=== PATIENT | female | born 1950 | race Caucasian/White ===

== ENCOUNTER 2025-07-05 14:36 | Outpatient (CLI) | payer BC ==
[2025-07-05] MEDS ORDERED: GADOTERATE MEGLUMINE 7.5 MMOL/15 ML VIAL IV ONE (17:59)
--- NOTE | 2025-07-05 18:42 | RADIOLOGY REPORT ---
PROCEDURE: MR MRI HEAD Indication: BENIGN NEOPLASM OF CRANIAL NERVES, ACOUSTIC NEUROMA COMPARISON: None TECHNIQUE: Multiplanar multisequence images of the brain are obtained with and without contrast, IAC protocol. FINDINGS: There is no abnormal diffusion restriction. There is no intracranial hemorrhage. No extra-axial flui d collection. No mass effect. There are lcda-[id number]-[id number] periventricular and subcortical white matter T2 and FLAIR hyperintense changes.m there is mild global cerebral volume loss. CP angle mass which e xtends into the right IAC measuring 13 12 mm. This demonstrates relatively homogeneous enhancement.. The ventricles are midline and normal in size. The cisterns are patent. Normal intracranial flow void s are preserved. No abnormal susceptibility signal. Hypoenhancing pituitary lesion measuring 7 x 9 mm . The sinuses and mastoids are well pneumatized. The visualized orbits are unremarkable. IMPRESSION: Enhancing right CP angle mass extending into the right IAC measuring 13 x 12 mm consistent with histo ry of schwannoma. Other considerations include meningioma. Correlate with prior imaging. No acute cerebrovascular ischemia. Ecpd-dp-[id number] chronic microvascular ischemic changes. Mild global cerebral volume loss. Hypoenhancing pituitary lesion measuring 7 x 9 mm, possibly micro adenoma. Recommend MRI brain with and without contrast, pituitary mass protocol 2 suzanna macias.
--- NOTE | 2025-07-05 20:25 | RADIOLOGY REPORT ---
EXAM: MR MRI C SPINE HISTORY: CERVICAL DISC DEGENERATION COMPARISON: None TECHNIQUE: MRI was performed utilizing multiple appropriate imaging planes and pulse sequences. FINDINGS: There is no acute fracture. There is multilevel disc desiccation and loss of intervertebral disc heig ht, most pronounced at C5-6. There is mild retrolisthesis of C5 on C6. There is grade 1 anterolisth esis of C7 on T1, T1 on T2, and T2 on T3. The spinal cord is unremarkable. The paraspinal soft tissu es are unremarkable. INTERVERTEBRAL DISCS: Evaluation is mildly degraded by motion artifact. C2-C3: No disc herniation, central canal stenosis, or neuroforaminal stenosis. C3-C4: No disc herniation, central canal stenosis, or neuroforaminal stenosis. C4-C5: A mild disc osteophyte effaces the thecal sac. There is mild facet arthropathy and uncovertebr al hypertrophy. There is mild left neural foraminal stenosis. C5-C6: A disc osteophyte complex effaces the thecal sac and contributes to at least mild spinal canal stenosis. There is facet arthropathy. There is at least mild bilateral neural foraminal stenosis. C6-C7: A disc osteophyte effaces the thecal sac and contributes to at least mild spinal stenosis. The re is facet arthropathy. There is at least mild left neural foraminal stenosis. C7-T1: No disc herniation, central canal stenosis, or neuroforaminal stenosis. IMPRESSION: 1. Multilevel degenerative changes of the cervical spine as detailed, most pronounced at C5-6. Please see above discussion.
== END 2025-07-05 23:59 | disposition home or self-care (01) ==
LOC: MRI 14:36
PROVIDERS: ATTEND General Practice
DX: M47.812 Spondylosis without myelopathy or radiculopathy, cervical region (principal); M50.30 Other cervical disc degeneration, unspecified cervical region; D33.3 Benign neoplasm of cranial nerves; M48.02 Spinal stenosis, cervical region; M25.78 Osteophyte, vertebrae
CPT/HCPCS: 70553; A9575

== ENCOUNTER 2025-07-27 09:55 | Outpatient (CLI) | payer BC ==
--- NOTE | 2025-07-27 14:54 | RADIOLOGY REPORT ---
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 15 mL Clariscan gadolinium contrast were used. FINDINGS: Enhancing mass of the right IAC and cerebellopontine angle is re- identified measuring up to 17.5 mm transverse x 9.1 mm AP (images 35-40, series 10). There is global brain atrophy. There is mild high T2-FLAIR signal abnormality in the periventricular white matter. No midline shift or hydrocep halus. No abnormal postcontrast enhancement is identified in the supra or infratentorial [place] or white matter. The diffusion-weighted images do not demonstrate restricted diffusion. Flow voids are present in the major intracranial vessels. T2 gradient echo images are severely limited by artifact. There is mild pituitary prominence and hypoenhancing nodule of the pituitary measuring 9.3 mm axially (image 35, series 10), without available coronal or sagittal post IV contrast images, and without thin images through the sella. The corpus callosum and craniocervical junction are unremarkable. There are P ostoperative changes of Bilateral cataract extraction surgery. The paranasal sinuses are clear. The bilateral mastoid air cells are clear. IMPRESSION: 1. Right IAC mass extending into the cerebellar pontine angle which may represent a schwannoma or meningioma. This measures up to 17.5 mm transverse x 9.1 mm AP, and is stable in size and appearance compared with MRI dated 07/05/2025. Evaluation is somewhat limited, as no thin images were performed th rough the IAC's, and no postcontrast sagittal or coronal images were performed here. 2. 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 3. Mild global brain atrophy and chronic ischemic changes without evidence of acute infarct or other acute intracranial process.
--- NOTE | 2025-07-27 15:05 | RADIOLOGY REPORT ---
CLINICAL INDICATION: IDIOPATHIC ASEPTIC NECROSIS OF LEFT FEMUR COMPARISON: None TECHNIQUE: Multiplanar, multi-sequence MRI of the left hip was performed without intravenous contrast. Large [id number] images include the contralateral hip. Contrast: None INTERPRETATION: Joint space: There is small left hip joint effusion. Contralateral hip is included on the large [id number] images ensure susceptibility artifact from a right hip replacement. Bones and articular cartilage: There is severe left hip joint space narrowing with complete loss of the articular cartilage of the left femoral head and the acetabulum. There is linear T2 hyperintensity in the left femoral head with adjacent sclerosis, consistent with avascular necrosis in the left femoral head. There is associated bone marrow edema in the left femoral head and neck. No articular collapse. No fracture. Left hip joint alignment is maintained. Degenerative changes in the lumbar spine. Tendons, muscles and bursae: No tendon tear. There is fatty replacement in the left rectus femoris muscle. No bursitis. Acetabular labrum: Degeneration of the left acetabular labrum with chronic tear. IMPRESSION: 1. 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 2. Fatty replacement in the left rectus femoris muscle suggesting remote injury.
[2025-07-27] MEDS ORDERED: GADOTERATE MEGLUMINE 7.5 MMOL/15 ML VIAL IV ONE (19:15)
== END 2025-07-27 23:59 | disposition home or self-care (01) ==
LOC: MRI 09:55
PROVIDERS: ATTEND General Practice
DX: M16.12 Unilateral primary osteoarthritis, left hip (principal); M87.052 Idiopathic aseptic necrosis of left femur; D44.4 Neoplasm of uncertain behavior of craniopharyngeal duct; R94.02 Abnormal brain scan; R90.0 Intracranial space-occupying lesion found on diagnostic imaging of central nervous system; M25.452 Effusion, left hip
CPT/HCPCS: 70553; 73721; A9575